=== PATIENT | female | born 1995 | race African-American/Black ===

== ENCOUNTER 2020-09-10 06:46 | Emergency (ER) | payer OTHER ==
[~2020-09-10] VITALS: Ht 170.2 cm; Wt 79.4 kg
== END 2020-09-10 18:39 | disposition home or self-care (01) ==
LOC: ER 06:46
DX: K52.89 Other specified noninfective gastroenteritis and colitis (principal)

== ENCOUNTER 2024-08-05 15:08 | Emergency (ER) | payer OTHER ==
[~2024-08-05] VITALS: Ht 170.2 cm; Wt 70.8 kg
[2024-08-05] MEDS ORDERED: FAMOTIDINE/PF 20 MG in 0.9 % SODIUM CHLORIDE 8 ML IV PUSH STA (16:24)
[2024-08-05] MEDS ORDERED: 0.9 % SODIUM CHLORIDE 1,000 ML IV SCH (16:30)
[2024-08-05] MEDS ORDERED: KETOROLAC TROMETHAMINE 30 MG VIAL IV ONE (16:30)
[2024-08-05] MEDS ORDERED: ONDANSETRON HCL 2 MG/ML VIAL IV ONE (16:30)
[2024-08-05] MEDS ORDERED: FAMOTIDINE/PF 20 MG/2 ML VIAL ONE (16:34)
[2024-08-05] MEDS ORDERED: ONDANSETRON HCL 2 MG/ML VIAL ONE (16:34)
[2024-08-05] MEDS ORDERED: KETOROLAC TROMETHAMINE 30 MG VIAL ONE (16:34)
[2024-08-05 16:58] LABS: HEMATOCRIT 41.8 % (36.0-45.00); HEMOGLOBIN 13.6 g/dL (12.0-15.00); MEAN CELL VOLUME 91.5 fL (80.00-100.00); MEAN CORPUSCULAR HEMOGLOBIN 29.8 pg (27.00-32.0); MEAN CORPUSCULAR HGB CONC 32.5 g/dl (32.0-36.0); PLATELET COUNT 305 K/uL (150-450); RED BLOOD COUNT 4.57 M/uL (4.00-6.00); RED CELL DISTRIBUTION WIDTH 12.2 % (11.5-14.5)
[2024-08-05 17:23] LABS: ALBUMIN 4.2 gm/dL (3.4-5.0); BILIRUBIN TOTAL 1.73 mg/dL (0.3-1.2); BILIRUBIN,CONJUGATED 0.3 mg/dL (0.0-0.2); BILIRUBIN,UNCONJUGATED 1.43 mg/dL (0.0-0.6); CALCIUM 9.7 mg/dL (8.5-10.1); CREATININE SERUM 0.78 mg/dL (0.55-1.02); GFR 87.32; GLOBULINA 4.1 G/DL (2.4-3.5); POTASSIUM 3.76 mEq/L (3.5-5.1); TOTAL PROTEIN 8.3 gm/dL (6.4-8.2)
[2024-08-05] MEDS ORDERED: PEPCID AC20 MG PO (18:46)
[2024-08-05] MEDS ORDERED: ZOFRAN8 MG PO (18:46)
== END 2024-08-05 19:58 | disposition home or self-care (01) ==
LOC: ER 15:11
PROVIDERS: General Practice
DX: K29.70 Gastritis, unspecified, without bleeding (principal); Z32.01 Encounter for pregnancy test, result positive

== ENCOUNTER 2024-09-17 14:23 | Emergency (ER) | payer OTHER ==
[~2024-09-17] VITALS: Ht 162.6 cm; Wt 54.4 kg
[~2024-09-17 14:23] MED LIST: PEPCID AC20 MG PO; ZOFRAN8 MG PO
[2024-09-17] MEDS ORDERED: FAMOTIDINE/PF 20 MG/2 ML VIAL IV ONE (15:45)
[2024-09-17] MEDS ORDERED: ONDANSETRON HCL 2 MG/ML VIAL IV ONE (15:45)
[2024-09-17] MEDS ORDERED: 0.9 % SODIUM CHLORIDE 1,000 ML IV ONE (15:45)
[2024-09-17] MEDS ORDERED: FAMOTIDINE/PF 20 MG/2 ML VIAL ONE (16:10)
[2024-09-17] MEDS ORDERED: ONDANSETRON HCL 2 MG/ML VIAL ONE (16:10)
[2024-09-17 16:41] LABS: HEMATOCRIT 35.9 % (36.0-45.00); HEMOGLOBIN 12.1 g/dL (12.0-15.00); MEAN CELL VOLUME 90.1 fL (80.00-100.00); MEAN CORPUSCULAR HEMOGLOBIN 30.5 pg (27.00-32.0); MEAN CORPUSCULAR HGB CONC 33.9 g/dl (32.0-36.0); PLATELET COUNT 280 K/uL (150-450); RED BLOOD COUNT 3.98 M/uL (4.00-6.00); RED CELL DISTRIBUTION WIDTH 13.1 % (11.5-14.5)
[2024-09-17 17:09] LABS: ALBUMIN 3.7 gm/dL (3.4-5.0); BILIRUBIN TOTAL 0.93 mg/dL (0.3-1.2); BILIRUBIN,CONJUGATED 0.21 mg/dL (0.0-0.2); BILIRUBIN,UNCONJUGATED 0.72 mg/dL (0.0-0.6); CALCIUM 9.4 mg/dL (8.5-10.1); CREATININE SERUM 0.51 mg/dL (0.55-1.02); GFR 142.57; GLOBULINA 3.7 G/DL (2.4-3.5); POTASSIUM 3.88 mEq/L (3.5-5.1); TOTAL PROTEIN 7.4 gm/dL (6.4-8.2)
[2024-09-17] MEDS ORDERED: ONDANSETRON ODT4 MG PO (18:32)
[2024-09-17] MEDS ORDERED: PEPCID AC20 MG PO (18:32)
== END 2024-09-17 18:47 ==
LOC: ER 14:24
PROVIDERS: General Practice
DX: Z33.1 Pregnant state, incidental (principal); K29.70 Gastritis, unspecified, without bleeding; R11.10 Vomiting, unspecified